=== PATIENT | male | born 1955 | race Caucasian/White ===

== ENCOUNTER 2016-04-21 09:04 | Emergency (ER) | payer OTHER ==
[~2016-04-21] VITALS: Ht 185.4 cm; Wt 132.0 kg
[~2016-04-21 09:04] MED LIST: CRESTOR20 MG PO; Coumadin Protocol PO; Feosol PO; Norvasc PO; Pyridoxine,Vitamin B PO; Vicodin,Norco 5/325 PO; Vitamin-E PO; Zestoretic,Prinzide PO; celeBREX PO
[2016-04-21] MEDS ORDERED: TYLENOL WITH C1 EACH PO (09:24)
[2016-04-21] MEDS ORDERED: CLEOCIN300 MG PO (09:24)
[2016-04-21 09:29] VITALS: BP 153/70
== END 2016-04-21 09:36 | disposition home or self-care (01) ==
LOC: EME 09:04
DX: K04.7 Periapical abscess without sinus (principal); K05.10 Chronic gingivitis, plaque induced; I10 Essential (primary) hypertension; Z87.442 Personal history of urinary calculi
CPT/HCPCS: 99281; 99283

== ENCOUNTER → 2016-10-08 | Outpatient (CLI) | payer OTHER ==
[~2016-10-08] MED LIST changes: +CLEOCIN300 MG PO; +TYLENOL WITH C1 EACH PO
== END | disposition home or self-care (01) ==
DX: M16.11 Unilateral primary osteoarthritis, right hip (principal); R26.2 Difficulty in walking, not elsewhere classified; M25.551 Pain in right hip; M25.651 Stiffness of right hip, not elsewhere classified; M62.81 Muscle weakness (generalized)
CPT/HCPCS: 97110 GP; 97150 GO; 97161 GP; 97165 GO

== ENCOUNTER 2016-11-04 22:35 | Inpatient (IN) | payer OTHER ==
[~2016-11-04] VITALS: Ht 185.4 cm; Wt 148.6 kg
[~2016-11-04 22:35] MED LIST changes: +ADVIL200 MG PO; +ASPIRIN81 M2 PO; +FISH OIL 1,0001 EAC7 PO; +IRON325 M1 PO; +NORVASC10 MG PO; +ZESTORETIC 20-1 EAC2 PO
[2016-11-05 07:20] VITALS: BP 146/79
[2016-11-05 12:39] LABS: HEMATOCRIT 35.9 % (38.0-50.0); MCH 29.5 PG (29.0-34.0); MCHC 33.7 G/DL (30.0-36.0); MCV 87.6 FL (86-99); MEAN PLAT.VOLUME 9.3 uM^3 (9.0-12.4); PLATELET COUNT 213 K/uL (156-360); RBC DIS.WIDTH-CV 12.3 % (11.8-14.6); RBC DIS.WIDTH-SD 39.4 % (39-53); WHITE BLOOD COUNT 7.2 K/uL (4.1-10.2)
[2016-11-05 13:53] VITALS: BP 132/70
[2016-11-05 15:18] VITALS: BP 124/60
[2016-11-05 19:57] VITALS: BP 106/64
[2016-11-06] VITALS (7 sets, daily range): BP systolic 103–122; BP diastolic 52–58
[2016-11-06 06:47] LABS: HEMATOCRIT 37.1 % (38.0-50.0); MCV 88.8 FL (86-99)
[2016-11-06 07:08] LABS: ANION GAP 6 MEQ/L (2-14); CHLORIDE 104 MEQ/L (99-109); GFR ESTIMATE (CALCULATED) > 59 mL/min/; GLUCOSE 125 mg/dL (70-99); POTASSIUM 4.5 MEQ/L (3.7-5.4); SAMPLE HEMOLYSIS CHECK 0; SAMPLE ICTERIC CHECK 0; SAMPLE LIPEMIA CHECK 0; SODIUM 141 MEQ/L (136-147); UREA NITROGEN (BUN) 17 mg/dL (9-23)
[2016-11-06 12:41] LABS: HEMATOCRIT 37.5 % (38.0-50.0); MCV 87.4 FL (86-99)
[2016-11-07 03:55] VITALS: BP 116/58
[2016-11-07 08:01] VITALS: BP 108/59
[2016-11-07] MEDS ORDERED: CELECOXIB200 MG PO (08:52)
[2016-11-07] MEDS ORDERED: OXYCODONE-APAP1 EACH PO (08:52)
[2016-11-07] MEDS ORDERED: LOVENOX40 MG/0.4 SC ×2 (08:52→09:01)
[2016-11-07] MEDS ORDERED: DOCUSATE SODIU100 MG PO (08:52)
[2016-11-07 11:35] VITALS: BP 116/55
[2016-11-07 15:04] VITALS: BP 128/65
== END 2016-11-07 16:39 | disposition home health service (06) | DRG 470 ==
LOC: ENRESERV 22:35 → 2SOUTH 11-05 06:37 → 3WEST 11-05 13:25 → 2SOUTH 11-05 13:41 → 3WEST 11-07 16:39
PROVIDERS: Orthopaedic Surgery
PROC: 0SR90JA Replacement of Right Hip Joint with Synthetic Substitute, Uncemented, Open Approach (ICD-10-PCS; principal; 2016-11-05)
DX: M16.11 Unilateral primary osteoarthritis, right hip (principal); I10 Essential (primary) hypertension; E78.5 Hyperlipidemia, unspecified; E11.9 Type 2 diabetes mellitus without complications; G47.30 Sleep apnea, unspecified; Z96.651 Presence of right artificial knee joint; E66.9 Obesity, unspecified; Z68.41 Body mass index [BMI] 40.0-44.9, adult; Z85.038 Personal history of other malignant neoplasm of large intestine; Z87.442 Personal history of urinary calculi; Z79.82 Long term (current) use of aspirin; Z86.711 Personal history of pulmonary embolism
CPT/HCPCS: 73501; 80048; 85014; 85018; 85027; J0131; J0690; J1170; J1650; J2250; J2405; J3010; J7050

== ENCOUNTER 2016-11-28 12:56 | Emergency (ER) | payer OTHER ==
[~2016-11-28] VITALS: Ht 185.4 cm; Wt 147.2 kg
[~2016-11-28 12:56] MED LIST changes: +CELECOXIB200 MG PO; +DOCUSATE SODIU100 MG PO; +LOVENOX40 MG/0.4 SC; +OXYCODONE-APAP1 EACH PO
[2016-11-28 14:12] LABS: BASOPHIL COUNT 0.1 K/uL (0-0.1); EOSINOPHIL (%) 2.8 % (0-5); EOSINOPHIL COUNT 0.2 K/uL (0-0.3); HEMATOCRIT 38.7 % (38.0-50.0); IMMATURE GRANULOCYTE (%) 0.3 % (0.0-0.7); INSTRUMENT ABS NEUTROPHIL CT 4.8 K/uL; LYMPHOCYTE COUNT 1.4 K/uL (1.0-2.8); MCH 29.1 PG (29.0-34.0); MCHC 33.6 G/DL (30.0-36.0); MCV 86.6 FL (86-99); MEAN PLAT.VOLUME 9.4 uM^3 (9.0-12.4); MONOCYTE (%) 9.8 % (3-12); MONOCYTE COUNT 0.7 K/uL (0-0.8); NEUTROPHIL (%) 66.3 % (45-76); NEUTROPHIL COUNT 4.8 K/uL (1.8-6.4); RBC DIS.WIDTH-CV 12.1 % (11.8-14.6); RBC DIS.WIDTH-SD 38.5 % (39-53); RED BLOOD COUNT 4.47 M/uL (4.00-5.50); WHITE BLOOD COUNT 7.2 K/uL (4.1-10.2)
[2016-11-28 14:13] LABS: PLATELET COUNT 285 K/uL (156-360)
[2016-11-28 14:20] LABS: CHLORIDE 105 mEq/L (99-109); POTASSIUM 4.4 mEq/L (3.7-5.4); SODIUM 140 mEq/L (136-147)
[2016-11-28 14:22] LABS: GLUCOSE 118 mg/dL (70-99)
[2016-11-28 14:23] LABS: ANION GAP 10 MEQ/L (2-14)
[2016-11-28 14:26] LABS: GFR ESTIMATE (CALCULATED) > 59 mL/min/
[2016-11-28 14:27] LABS: UREA NITROGEN (BUN) 17 mg/dL (9-23)
[2016-11-28 14:33] LABS: TROP-I INTERPRETATION NEGATIVE; TROPONIN-I 0.01 ng/mL (0.0-0.30)
[2016-11-28 17:43] VITALS: BP 120/59
== END 2016-11-28 17:44 | disposition home or self-care (01) ==
LOC: EME 12:56
PROVIDERS: Emergency Medicine
DX: R42 Dizziness and giddiness (principal); I10 Essential (primary) hypertension; E78.5 Hyperlipidemia, unspecified; Z85.038 Personal history of other malignant neoplasm of large intestine; Z96.641 Presence of right artificial hip joint; Z96.651 Presence of right artificial knee joint; Z87.442 Personal history of urinary calculi
CPT/HCPCS: 70450; 71010; 80048; 84484; 85025; 99281; 99285; J2405; J7030